=== PATIENT | male | born 1975 | race Caucasian/White ===

== ENCOUNTER 2024-04-25 07:18 | Emergency (ER) | payer BC, SELFPAY ==
[2024-04-25 07:22] VITALS: BP 134/78
--- NOTE | 2024-04-25 08:20 | ED.GENMED ---
History of Present Illness
General
Chief Complaint: Abdominal Pain
Source: patient
Time Seen by Provider: 04/25/24 08:11
History of Present Illness
History of Present Illness:
48yoM with a history of kidney stones presenting for evaluation of right flank pain. Patient started with RUQ pain around 5am this morning. Pain woke him up from sleep. Pain radiates to the R flank and into the RLQ. The pain is worst in the R flank
region. He also reports nausea and had 1 episode of vomiting. Patient took 600mg ibuprofen prior to arrival. He has a history of kidney stones but states his pain with kidney stones is typically more severe than this. Pain is now mild after
receiving ibuprofen. He denies any fevers, dysuria, hematuria, testicular pain, chest pain, shortness of breath.
Past History
Past History
ED Past Medical History: None and Other (Kidney stone)
ED Past Surgical History: Other (Nasal surgery)
Social History
Tobacco: Former smoker
Alcohol: Occasional
Drug: None
Personal:
Living: with family
Employment: Employed
Family History
Family History: Other (Noncontributory)
Phy Exam
General Physical Exam
General Presentation: well appearing and no apparent distress
General age: appears stated age
General Skin: warm and dry
General Habitus: normal
General Mental: alert
Cardiovascular Exam
Cardiovascular Exam: regular rate/rhythm
Pulmonary Exam
Pulmonary Exam: lungs clear, no respiratory distress, no crackles and no wheezing
Gastrointestinal Exam
Gastrointestinal Exam: non tender, soft, non distended, no cva tenderness and other (No reproducible tenderness in abdomen. Negative Lee's sign. No CVA tenderness. )
Skin Exam
Skin Exam: normal color and warm/dry
Psychiatric Exam
Psychiatric Exam: normal mood/affect
Course
Orders/Labs/Results
Orders:
Orders
04/25/24 07:31
Ondansetron Injectable [Zofran] 4 mg .ROUTE .STK-MED ONE
04/25/24 08:20
CT Abd/pel Without Iv Or Oral Urgent
Comment:
Reason For Exam: R flank pain
0.9% Sodium Chloride 1000 ml [Nss] 1,000 ml IV BOLUS
04/25/24 08:31
Complete Blood Count/With Diff Urgent
Comprehensive Metabolic Panel Urgent
Lipase Urgent
Urinalysis Reflex To Culture Urgent
Date Specimen was Collected: 04/25/24
Time Specimen was Collected: 08:26
Abnormal Lab Results
04/25/24
08:31
MCH 31.6 H pg
(27.0-31.0)
MPV 10.9 H fL
(7.4-10.4)
Absolute Monos (auto) 0.7 H 10^3/uL
(0.1-0.6)
Monocytes % 11.3 H %
(1.7-9.3)
BUN 33 H mg/dl
(9-20)
Glucose 135 H mg/dl
(70-99)
04/25/24 08:31
04/25/24 08:31
Vital Signs
Initial and Last Documented VS:
Initial Vital Signs
Temp Pulse Resp BP Pulse Ox
98.2 F 52 16 134/78 98
04/25/24 07:22 04/25/24 07:22 04/25/24 07:22 04/25/24 07:22 04/25/24 07:22
Last Documented Vital Signs
Temp Pulse Resp BP Pulse Ox
98.2 F 52 16 134/78 98
04/25/24 07:22 04/25/24 07:22 04/25/24 07:22 04/25/24 07:22 04/25/24 07:22
MDM/Problems Addressed
Differential Diagnosis Includes:
48yoM here with R flank and RUQ pain that woke him up from sleep this morning. Associated with n/v. Hx of kidney stones. He is afebrile and hemodynamically stable. He is well appearing in no distress. No abdominal or CVA tenderness on exam.
Differential diagnosis includes but is not limited to: kidney stone, musculoskeletal, biliary colic
Initial ED plan: Check abdominal labs, UA, and CT abdomen. IV fluid bolus.
*Critical Care Note
Total Time (30-74mins, 75-104mins- exclusive of procedures): Not Applicable
Update Note
Update Note:
Labs overall unremarkable including normal white count, renal function, LFTs. UA bland without microscopic hematuria or signs of infection. CT abdomen is negative for acute findings. Patient asymptomatic on reassessment. Unclear etiology of
symptoms. ?passed stone. Supportive care discussed. Advised f/u with PCP and ED return precautions discussed. He was discharged in stable condition.
ED Attending Note
-
Portions of this chart may have been created with voice recognition software.� Occasional wrong word or��sound alike� substitutions may have occurred due to the inherent limitations of voice recognition software.
Discharge Plan
Departure
Patient Disposition: Home (Routine Discharge)
Date of Disposition: 04/25/24
Time of Disposition: 10:32
Patient with high blood pressure during this ER visit?: No
Discharge Problem:
Right flank pain
Instructions: Flank Pain ED
Prescriptions:
No Action
oseltamivir 75 MG capsule
75 mg PO BID Qty: 10 0RF
oxycodone-acetaminophen [Percocet] 5-325 mg tablet
1 tab PO Q4HPRN PRN (Reason: pain) Qty: 10 0RF
ibuprofen 600 mg tablet
600 mg PO TID PRN (Reason: fever or pain) Qty: 20 0RF
Referrals:
Magi Escobar PA-C [Family Provider] -
Activity Restrictions/Additional Instructions:
Take Tylenol 650mg and ibuprofen 600mg every 6 hours as needed for pain.
Please follow-up with your family doctor. Return to the ER immediately with any new or worsening symptoms.
Discharge Date and Time
Print Language: INDONESIAN
[2024-04-25] MEDS: NSS 1000 IV (08:36)
[2024-04-25 08:43] LABS: % Basophils 0.9 % (0-2); % Eosinophils 4.2 % (0-6); % Immature Granulocytes 0.3 % (0-0.5); % Lymphocytes 34.4 % (20.5-51.1); % Monocytes 11.3 % (1.7-9.3); % Neutrophils 48.9 % (42.2-75.2); Absolute Basophils 0.1 10^3/uL (0-0.2); Absolute Eosinophils 0.2 10^3/uL (0-0.7); Absolute Monocytes 0.7 10^3/uL (0.1-0.6); Absolute Neutrophils 2.8 10^3/uL (1.4-6.5); Hematocrit 44.3 % (39.0-52.0); Hemoglobin 15.4 g/dL (13.0-18.0); Mean Corp Hgb Conc. 34.8 g/dL (33.0-37.0); Mean Corpuscular Hgb 31.6 pg (27.0-31.0); Mean Platelet Volume 10.9 fL (7.4-10.4); Nucleated Red Blood Cells % 0 % (-); Platelet Count 235 10^3/uL (130-400); Red Blood Cell Count 4.87 10^6/uL (4.70-6.10); Red Cell Dist. Width 11.6 % (11.5-14.5); White Blood Cell Count 5.8 10^3/uL (4.8-10.8)
[2024-04-25 09:10] LABS: ALT (SGPT) 26 U/L (0-50); AST (SGOT) 34 U/L (17-59); Albumin 4.5 g/dl (3.5-5.0); Alkaline Phosphatase 61 U/L (38-126); Blood Urea Nitrogen 33 mg/dl (9-20); Calcium 9.3 mg/dl (8.4-10.2); Carbon Dioxide 27 mmol/L (22-30); Chloride 105 mmol/L (98-107); Glucose 135 mg/dl (70-99); Lipase 210 U/L (23-300); Potassium 4.6 mmol/L (3.5-5.1); Sodium 142 mmol/L (135-145); Total Bilirubin 0.4 mg/dl (0.2-1.3); Total Protein 6.8 g/dl (6.3-8.2); eGFR > 60.00
[2024-04-25 10:05] LABS: Urine Albumin Negative (Neg - Trace); Urine Bilirubin Negative (Negative); Urine Character Slightly Cloudy (Clear); Urine Color Yellow; Urine Glucose Negative (Negative); Urine Ketone Negative (Negative); Urine Leukocyte Negative (Negative); Urine Nitrite Negative (Negative); Urine Occult Blood Negative (Negative); Urine Specific Gravity 1.025 (<1.030); Urine Urobilinogen Negative (Neg - 1+)
== END 2024-04-25 10:35 | disposition home or self-care (01) ==
LOC: EMR 07:18
PROVIDERS: Physician Assistant; EMERGENCY PHYSICIAN Emergency Medicine; FAMILY PHYSICIAN Student in an Organized Health Care Education/Training Program
DX: R10.31 Right lower quadrant pain (principal); R10.11 Right upper quadrant pain; R11.2 Nausea with vomiting, unspecified; Z87.891 Personal history of nicotine dependence; Z87.442 Personal history of urinary calculi
CPT/HCPCS: 99284; 96360; 74176; 80053; 81003; 83690; 85025

== ENCOUNTER → 2024-06-10 07:07 | Outpatient (REF) | payer BC, SELFPAY | LOC: HWRAD 07:07 | PROVIDERS: ATTENDING PHYSICIAN Student in an Organized Health Care Education/Training Program | DX: R10.11 Right upper quadrant pain (principal); Z87.19 Personal history of other diseases of the digestive system | CPT/HCPCS: 76700 ==

== ENCOUNTER → 2024-10-07 15:43 | Outpatient (REF) | payer BC, SELFPAY | LOC: HWRAD 15:43 | PROVIDERS: ATTENDING PHYSICIAN Specialist; FAMILY PHYSICIAN Student in an Organized Health Care Education/Training Program | DX: N20.0 Calculus of kidney (principal); N20.1 Calculus of ureter | CPT/HCPCS: 74018 ==

== ENCOUNTER → 2025-05-25 07:51 | Outpatient (REF) | payer BC, SELFPAY | LOC: HWRAD 07:51 | PROVIDERS: ATTENDING PHYSICIAN Student in an Organized Health Care Education/Training Program | DX: R10.13 Epigastric pain (principal) | CPT/HCPCS: 76700 ==